=== PATIENT | female | born 1935 | race Hispanic/Latino ===

== ENCOUNTER 2017-11-04 16:34 | Emergency (ER) | payer MEDICARE ==
[~2017-11-04] VITALS: Ht 160 cm; Wt 69.4 kg
[2017-11-04 17:08] LABS: BASOPHILS # (AUTO) 0.1 (0.0-0.1); BASOPHILS % 0.8 % (0.0-1.0); EOSINOPHILS # (AUTO) 0.1 (0.0-0.4); EOSINOPHILS % 1.5 % (0.0-6.0); HEMATOCRIT 35.1 % (34.2-44.1); HEMOGLOBIN 11.9 g/dL (12.0-16.0); LYMPHOCYTES # (AUTO) 1.7 (1.0-3.2); LYMPHOCYTES % 26.9 % (18.0-39.1); MEAN CORPUSCULAR HEMOGLOBIN 30.9 pg (28-32); MEAN CORPUSCULAR HGB CONC 33.9 g/dL (31-35); MEAN CORPUSCULAR VOLUME 91.2 fL (81-99); MONOCYTES # (AUTO) 0.5 (0.2-0.8); MONOCYTES % 7.3 % (4.4-11.3); NEUTROPHILS # (AUTO) 3.9 (2.1-6.9); NEUTROPHILS % 63.3 % (38.7-80.0); PLATELET COUNT 230 x10e3/uL (140-360); RED BLOOD COUNT 3.85 x10e6/uL (3.6-5.1); RED CELL DISTRIBUTION WIDTH 13.5 % (11.7-14.4)
[2017-11-04 17:23] LABS: INR 1.36; PARTIAL THROMBOPLASTIN TIME 28.3 seconds (23.8-35.5); PROTHROMBIN TIME 17.9 seconds (11.9-14.5)
[2017-11-04 17:29] LABS: ALBUMIN 3.9 g/dL (3.5-5.0); ANION GAP 13.9 mmol/L (8-16); CALCIUM 9.4 mg/dL (8.4-10.2); POTASSIUM 3.9 mmol/L (3.5-5.1)
[2017-11-04 17:35] LABS: CREATINE KINASE MB 2.6 ng/mL (0-5.0)
[2017-11-04 17:36] LABS: CLARITY,URINE SL CLOUDY (CLEAR); COLOR,URINE YELLOW (YELLOW); LEUKOCYTE ESTERASE ,URINE TRACE (NEGATIVE); NITRITE,URINE NEGATIVE (NEGATIVE); PROTEIN,URINE DIPSTICK NEGATIVE (NEGATIVE)
[2017-11-04 17:37] LABS: BILIRUBIN,URINE NEGATIVE (NEGATIVE); KETONES,URINE NEGATIVE (NEGATIVE); URINE UROBILINOGEN 0.2 mg/dL (0.2 - 1)
[2017-11-04 17:46] LABS: BACTERIA,URINE RARE /HPF; RBC,URINE 0-5 /HPF (0-5)
--- NOTE | 2017-11-04 18:08 | Diagnostic Imaging Report ---
EXAMINATION: Head CT HISTORY: Dizziness , visual disturbance, hypertension COMPARISON: None. TECHNIQUE: Multidetector axial images were obtained without contrast from the foramen magnum to the vertex . The images were reconstructed using brain and bone algorithms. Thin section brain images were reformatted into coronal and sagittal planes. Intravenous contrast: None. Image quality: Motion/streaking artifact limits the evaluation of the skull base and posterior cranial fossa. Dose modulation, iterative reconstruction, and/or weight based adjustment of the mA/kV was utilized to reduce the radiation dose to as low as reasonably achievable. FINDINGS: Parenchyma: 1. Few scattered and mildly confluent mainly juxtacortical matter hypodensities, most likely nonspecific chronic microvascular ischemic changes. 2. No mass or hemorrhage. No CT evidence of acute territorial vascular insult. Extra-axial spaces:No abnormal density. No extra-axial fluid collections Brain volume: Normal for age. Ventricles: No hydrocephalus or displacement. Arteries: Calcified atherosclerotic changes of the carotid arteries and vertebro-basilar circulation. Dural sinuses: No abnormal density. Extra-axial spaces: No abnormal density. Foramen magnum: No mass, Chiari malformation, or basilar invagination. Sella: Enlarged, partially empty, mostly CSF filled. Paranasal/mastoid sinuses: Mild mucosal inflammatory thickening of the right sphenoid sinus, otherwise clear Skull/Scalp: No lytic or blastic lesions. No fractures. IMPRESSION: 1. No acute intracranial abnormalities, particularly no hemorrhage. 2. Mild chronic microvascular ischemic changes. Signed by: Dr. Felicita Jackson M.D. on 11/04/2017 6:04 PM
--- NOTE | 2017-11-04 18:12 | Diagnostic Imaging Report ---
Examination: Single AP view of the chest. COMPARISON: None. INDICATION: Possible high blood pressure, dizziness IMPRESSION: Exam limited by patient rotation. 1. Lines and Tubes: None 2. Lungs are grossly clear. No consolidation or effusion. 3. Cardiomediastinal silhouette is normal. Pulmonary vasculature is normal. Mildly tortuous aorta 4. No acute bony abnormalities. Signed by: Dr. Filiberto Schmitt M.D. on 11/04/2017 6:08 PM
[2017-11-04] MEDS ORDERED: MECLIZINE HCL 12.5 MG TAB PO SCH (21:00)
== END 2017-11-04 19:37 | disposition home or self-care (01) ==
LOC: ER 16:34
DX: R42 Dizziness and giddiness (principal); R11.0 Nausea; N30.91 Cystitis, unspecified with hematuria
CPT/HCPCS: 36415; 70450; 71045; 80053; 81001; 82550; 82553; 84484; 85025; 85610; 85730; 93005; 99284

== ENCOUNTER 2018-05-06 16:27 | Emergency (ER) | payer MEDICARE ==
[~2018-05-06] VITALS: Ht 160 cm; Wt 69.4 kg
--- OUTSIDE RECORDS SUMMARY | 2018-05-06 16:30 | XMS REPORT ---
Author [facility] Address Unknown Phone Unavailable Care Team Providers Care Energy Control Officer Name Role Phone Ifrah FARMER Unavailable Unavailable Problems This patient has no known problems. Allergies, Adverse Reactions, Alerts This patient has no known allergies or adverse reactions. Medications This patient has no known medications. Results Test Description Test Time Test Comments Text Results Atomic Results Result Comments CHEST SINGLE (PORTABLE) 2017-11-04 18:08:00 [place] [address] Patient Name: JOSE MASON MR #: [id number] : 1935 Age/Sex: 81/F Req #: [id number] Adm Physician: Ordered by: TRIXIE HUSAIN CLEAT THROWER Report #: [id number] Location: ER Room/Bed: Procedure: [id number] DX/CHEST SINGLE (PORTABLE) Exam Date: 11/04/17 Exam Time: 1750 REPORT STATUS: Signed Examination: Single AP view of the chest. COMPARISON: None. INDICATION: Possible high blood pressure, dizziness IMPRESSION: Exam limited by patient rotation. 1. Lines and Tubes: None 2. Lungs are grossly clear. No consolidation or effusion. 3. Cardiomediastinal silhouette is normal. Pulmonary vasculature is normal. Mildly tortuous aorta 4. No acute bony abnormalities. Signed by: Dr. Mushtaq Schmitt M.D. on 11/04/2017 6:08 PM Dictated By: MUSHTAQ SCHMITT MD 07 Transcribed By: NANCY on 11/04/171807 COPY TO: TRIXIE HUSAIN NP CT BRAIN WO 2017-11-04 17:55:00 [place] [address] Patient Name: JOSE MASON MR #: [id number] : 1935 Age/Sex: 81/F Req #: [id number] Adm Physician: Ordered by: TRIXIE HUSAIN NP Report #: [id number] Location: ER Room/Bed: Procedure: [id number] CT/CT BRAIN WO Exam Date: 11/04/17 Exam Time: 1745 REPORT STATUS: Signed EXAMINATION: Head CT HISTORY: Dizziness , visual disturbance, hypertension COMPARISON: None. TECHNIQUE: Multidetector axial images were obtained without contrast from the foramen magnum to the vertex . The images were reconstructed using brain and bone algorithms. Thin section brain images were reformatted into coronal and sagittal planes. Intravenous contrast: None. Image quality: Motion/streaking artifact limits the evaluation of the skull base and posterior cranial fossa. Dose modulation, iterative reconstruction, and/or weight based adjustment of the mA/kV was utilized to reduce the radiation dose to as low as reasonably achievable. FINDINGS: Parenchyma: 1. Few scattered and mildly confluent mainly juxtacortical matter hypodensities, most likely nonspecific chronic microvascular ischemic changes. 2. No mass or hemorrhage. No CT evidence of acute territorial vascular insult. Extra-axial spaces:No abnormal density. No extra-axial fluid collections Brain volume: Normal for age. Ventricles: No hydrocephalus or displacement. Arteries: Calcified atherosclerotic changes of the carotid arteries and vertebro-basilar circulation. Dural sinuses: No abnormal density. Extra-axial spaces: No abnormal density. Foramen magnum: No mass, Chiari malformation, or basilar invagination. Sella: Enlarged, partially empty, mostly CSF filled. Paranasal/mastoid sinuses: Mild mucosal inflammatory thickening of the right sphenoid sinus, otherwise clear Skull/Scalp: No lytic or blastic lesions. No fractures. IMPRESSION: 1. No acute intracranial abnormalities, particularly no hemorrhage. 2. Mild chronic microvascular ischemic changes. Signed by: Dr. Elizabet Jackson M.D. on 11/04/2017 6:04 PM Dictated By: ELIZABET JACKSON MD 03 Transcribed By: NANCY on 11/04/171803 COPY TO: TRIXIE HUSAIN NP
[2018-05-06 17:44] LABS: BASOPHILS % 0.3 % (0.0-1.0); EOSINOPHILS # (AUTO) 0.1 (0.0-0.4); EOSINOPHILS % 0.7 % (0.0-6.0); HEMATOCRIT 37.2 % (34.2-44.1); HEMOGLOBIN 12.2 g/dL (12.0-16.0); LYMPHOCYTES # (AUTO) 1.3 (1.0-3.2); LYMPHOCYTES % 13.2 % (18.0-39.1); MEAN CORPUSCULAR HEMOGLOBIN 30.7 pg (28-32); MEAN CORPUSCULAR HGB CONC 32.8 g/dL (31-35); MEAN CORPUSCULAR VOLUME 93.5 fL (81-99); MONOCYTES # (AUTO) 0.6 (0.2-0.8); MONOCYTES % 6.3 % (4.4-11.3); NEUTROPHILS # (AUTO) 7.8 (2.1-6.9); NEUTROPHILS % 79.2 % (38.7-80.0); PLATELET COUNT 232 x10e3/uL (140-360); RED BLOOD COUNT 3.98 x10e6/uL (3.6-5.1); RED CELL DISTRIBUTION WIDTH 13.3 % (11.7-14.4)
[2018-05-06 17:54] LABS: INR 1.58; PROTHROMBIN TIME 19.5 seconds (11.9-14.5)
[2018-05-06 17:55] LABS: PARTIAL THROMBOPLASTIN TIME 33.5 seconds (23.8-35.5)
[2018-05-06 18:04] LABS: ALBUMIN 3.8 g/dL (3.5-5.0); ALBUMIN/GLOBULIN RATIO 0.9 (0.8-2.0); ANION GAP 12.3 mmol/L (8-16); CALCIUM 9.1 mg/dL (8.4-10.2); CREATININE, SERUM 0.98 mg/dL (0.57-1.11); POTASSIUM 3.3 mmol/L (3.5-5.1)
--- NOTE | 2018-05-06 18:29 | Diagnostic Imaging Report ---
Wrist Complete right CPT Code: 27598 Indication: Fall, hand swelling Technique: Three views right wrist obtained. Comparison: None Findings: The bones are diffusely demineralized. Nondisplaced fracture of the distal radius with the fracture plane extending to the articular surface. No impaction. Distal ulna is intact. The carpal bones are intact and normally aligned. Mild degenerative changes of the carpometacarpal joint. No fracture or dislocation of the visualized digits. No radiopaque foreign bodies in the soft tissues. IMPRESSION: Nondisplaced fracture of the distal radius. Signed by: Dr. Mayra Stern MD on 05/06/2018 6:26 PM
--- NOTE | 2018-05-06 18:30 | Diagnostic Imaging Report ---
History: Fall, on coumadin Comparison studies:10/15/2017 Technique: Axial images were obtained from the brain and cervical spine. Coronal and sagittal images reconstructed from the axial data. Intravenous contrast: None Dose modulation, iterative reconstruction, and/or weight based adjustment of the mA/kV was utilized to reduce the radiation dose to as low as reasonably achievable. Findings: Head CT: Scalp/skull: No abnormalities. Extra-axial spaces: No masses. No fluid collections. Brain sulci: Mildly prominent. Ventricles: Mild compensatory dilatation. No hydrocephalus. Parenchyma: Describe hypodensities in the supratentorial white matter are small vessel ischemic changes. No masses, hemorrhage, acute or chronic cortical vascular insults. Sellar/suprasellar region: No abnormalities. Craniocervical junction: Patent foramen magnum. No Chiari one malformation. Incidental findings: Atherosclerotic calcifications in the carotid siphons, vertebrals and basilar arteries . Cervical spine CT: Fractures: None. Soft tissues: No gross abnormalities. Atlantoaxial articulation: Intact. Alignment: Normal lordosis. No scoliosis. Cervicomedullary junction: No abnormalities. Patent foramen magnum. Vertebrae: No infection or neoplasm. Degenerative changes: Uncinate process and facet hypertrophy results in severe right foraminal narrowing at C4-6 and severe bilateral at C6-7. Incidental findings: None. Impression: Head CT: 1. No acute abnormality. Cervical spine CT: 1. No acute abnormalities. 2. Cannot exclude ligament, spinal cord and or vascular abnormalities on the basis of this examination. Signed by: DR Asael Carter M.D. on 05/06/2018 6:26 PM
--- NOTE | 2018-05-06 18:31 | Diagnostic Imaging Report ---
Hand Complete CPT code: 83360 Indication:Fall Technique: Three views of the right hand obtained Comparison: Wrist x-rays obtained at the same time Findings: There is a nondisplaced fracture through the distal radius involving the articular surface. No impaction. Distal ulna is intact. Carpal bones are intact and normally aligned with mild degenerative changes of the first CMC joint. The digits are intact. No dislocation. Degenerative changes of the proximal and distal IP joints and the IP joint of the first digit. There is diffuse soft tissue swelling of the hand. No radiopaque foreign bodies in the soft tissues. IMPRESSION: Nondisplaced distal radial fracture. No fracture or dislocation of the digits or carpal bones. Degenerative changes as described above. Signed by: Dr. Mayra Stern MD on 05/06/2018 6:28 PM
--- NOTE | 2018-05-06 18:34 | Diagnostic Imaging Report ---
EXAMINATION: CHEST SINGLE (PORTABLE) COMPARISON: Chest x-ray 11/04/2017 INDICATION: ^fall ^[id number] ^1803 DISCUSSION: Frontal view of the chest obtained at 1754 hours. HEART AND MEDIASTINUM: The heart is top normal in size. The aorta is ectatic LINES: None. LUNGS: The lungs are diffusely hyperinflated. Mild reticulation of the lung bases is suggestive of subsegmental atelectasis. No consolidation. No interstitial thickening. PLEURA: No pleural effusion or pneumothorax. BONES AND SOFT TISSUES: The bones are diffusely demineralized. No fracture or dislocation. There are degenerative changes throughout the thoracic spine. The soft tissues are normal. IMPRESSION: No acute traumatic pathology by x-ray. COPD and subsegmental atelectasis. Signed by: Dr. Mayra Stern MD on 05/06/2018 6:31 PM
--- NOTE | 2018-05-06 18:35 | Diagnostic Imaging Report ---
Hip complete Indication: ^fall Technique: AP and frogleg views of right hip obtained. Comparison: None Findings: Right hip remains properly located. The cortex appears intact throughout. Trochanters appear intact. Minimal spurring evident from the superior acetabulum. Adjacent pubic rami appear intact. There are degenerative changes of the pubic symphysis. Lower lumbar spine demonstrates degenerative changes. The left hip is intact and normally positioned. There is a bone island in the right issue tuberosity and a bone island in the left femoral neck. IMPRESSION: Right hip properly located. No convincing evidence for fracture. Signed by: Dr. Mayra Stern MD on 05/06/2018 6:32 PM
[2018-05-06 19:31] VITALS: BP 130/66
== END 2018-05-06 19:44 | disposition home or self-care (01) ==
LOC: ER 16:27
DX: S52.591A Other fractures of lower end of right radius, initial encounter for closed fracture (principal); W01.0XXA Fall on same level from slipping, tripping and stumbling without subsequent striking against object, initial encounter; Y92.009 Unspecified place in unspecified non-institutional (private) residence as the place of occurrence of the external cause; S79.911A Unspecified injury of right hip, initial encounter; I10 Essential (primary) hypertension; E78.5 Hyperlipidemia, unspecified; Z86.73 Personal history of transient ischemic attack (TIA), and cerebral infarction without residual deficits
CPT/HCPCS: 36415; 70450; 71045; 72125; 80053; 85025; 85610; 85730; 99284

== ENCOUNTER 2018-07-22 10:40 | Inpatient (IN) | payer MEDICARE ==
[~2018-07-22] VITALS: Ht 160 cm; Wt 69.4 kg
[2018-07-22 11:49] LABS: BASOPHILS % 0.3 % (0.0-1.0); EOSINOPHILS # (AUTO) 0.1 (0.0-0.4); EOSINOPHILS % 0.8 % (0.0-6.0); HEMATOCRIT 34.6 % (34.2-44.1); HEMOGLOBIN 11.8 g/dL (12.0-16.0); LYMPHOCYTES # (AUTO) 1.3 (1.0-3.2); LYMPHOCYTES % 10.5 % (18.0-39.1); MEAN CORPUSCULAR HEMOGLOBIN 30.7 pg (28-32); MEAN CORPUSCULAR HGB CONC 34.1 g/dL (31-35); MEAN CORPUSCULAR VOLUME 90.1 fL (81-99); MONOCYTES # (AUTO) 0.8 (0.2-0.8); MONOCYTES % 6.6 % (4.4-11.3); NEUTROPHILS % 81.3 % (38.7-80.0); PLATELET COUNT 233 x10e3/uL (140-360); RED BLOOD COUNT 3.84 x10e6/uL (3.6-5.1); RED CELL DISTRIBUTION WIDTH 13.2 % (11.7-14.4)
[2018-07-22 11:58] LABS: INR 1.82; PROTHROMBIN TIME 21.7 seconds (11.9-14.5)
[2018-07-22 12:02] LABS: ANION GAP 12.6 mmol/L (8-16); CALCIUM 8.8 mg/dL (8.4-10.2); CREATININE, SERUM 0.99 mg/dL (0.57-1.11); POTASSIUM 3.6 mmol/L (3.5-5.1)
--- NOTE | 2018-07-22 12:15 | NUR ---
bladder scan done; pvr-30ml. dr. hall/james notified
[2018-07-22 12:26] LABS: BILIRUBIN,URINE NEGATIVE (NEGATIVE); CLARITY,URINE TURBID (CLEAR); COLOR,URINE RED (YELLOW); KETONES,URINE NEGATIVE (NEGATIVE); LEUKOCYTE ESTERASE ,URINE TRACE (NEGATIVE); NITRITE,URINE NEGATIVE (NEGATIVE); URINE UROBILINOGEN 0.2 mg/dL (0.2 - 1)
[2018-07-22 12:33] LABS: PROTEIN,URINE DIPSTICK 2+ (NEGATIVE)
[2018-07-22 12:40] LABS: RBC,URINE >50 /HPF (0-5)
[2018-07-22] MEDS ORDERED: IOPAMIDOL 370 MG/ML 200 ML INFUS..BTL INJ ONE (14:04)
[2018-07-22] MEDS ORDERED: SODIUM CHLORIDE 0.9% 50ML 50 ML ONE (14:04)
--- NOTE | 2018-07-22 16:07 | Diagnostic Imaging Report ---
EXAM: CT Abdomen and Pelvis with contrast INDICATION: Hematuria COMPARISON: None. TECHNIQUE: Abdomen and pelvis were scanned utilizing a multidetector helical scanner from the lung base to the pubic symphysis after administration of IV contrast. Coronal and sagittal reformations were obtained. Routine protocol was performed. Scan was performed when during portal venous phase. IV CONTRAST: 100 cc of Isovue 370 ORAL CONTRAST: Water COMPLICATIONS: None RADIATION DOSE: Total DLP: 323.2 mGy*cm Dose modulation, iterative reconstruction, and/or weight based adjustment of the mA/kV was utilized to reduce the radiation dose to as low as reasonably achievable. FINDINGS: LINES and TUBES: None. LOWER THORAX: Patchy dependent opacities, likely atelectasis. Mild cardiomegaly. Coronary atherosclerosis. HEPATOBILIARY: There is a 8 mm hyperdense lesion at the hepatic dome on series 2, image 10; and two left hepatic lesions measuring 7 mm and 9 mm on image 19. Diffuse mild hepatic steatosis. No biliary ductal dilation. A 7 mm hypodensity in the right hepatic lobe is too small to characterize, but likely represents a cyst. GALLBLADDER: No radio-opaque stones or sludge. No wall thickening. SPLEEN: No splenomegaly. PANCREAS: There is a 1.6 cm heterogeneously hyperdense lesion at the pancreatic tail. No focal masses or ductal dilatation. ADRENALS: No adrenal nodules KIDNEYS/URETERS: Kidneys enhance symmetrically. Bilateral pelviectasis without hydronephrosis. No evidence of solid mass or stone. Indeterminant 7 mm hypodense lesion in the right mid pole kidney (series 2, image 39; 45 HU). A left lower pole renal hypodensity is too small to characterize, but likely represents a cyst. GI TRACT: No evidence of wall thickening or distension. Status post appendectomy. There is sigmoid colonic diverticulosis without CT evidence of diverticulitis. PELVIC ORGANS/BLADDER: Status post hysterectomy. LYMPH NODES: No lymphadenopathy. VESSELS: There are scattered atherosclerotic calcifications in the aorta and branch vessels. PERITONEUM / RETROPERITONEUM: No free air or fluid. BONES AND SOFT TISSUES: Mild degenerative changes of visualized spine. Nonspecific sclerotic focus in the posterior aspect of the right inferior pubic ramus. CONCLUSION: Pancreatic tail hyperdense lesion with multiple hyperdense liver lesions. Differential includes neuroendocrine tumor. Recommend follow-up MRI with focus on the liver and pancreas for further evaluation. Indeterminate 7 mm hypodense lesion in the right mid pole kidney. Suggest follow-up renal ultrasound for further evaluation. Hepatic steatosis. Signed by: Dr. Charmaine Pablo MD on 07/22/2018 4:08 PM
[2018-07-22] MEDS ORDERED: MORPHINE SULFATE 2 MG/ML SYR 1ML IV PRN (17:00)
[2018-07-22] MEDS: MORPHINE SULFATE INJ 4 MG/ML INJ 1ML IV PRN ×2 (17:51→22:10)
[2018-07-22] MEDS: SODIUM CHLORIDE 0.9% 1000ML 1,000 ML IV SCH (17:52)
[2018-07-22] MEDS: ONDANSETRON HCL INJ 2MG/ML 2ML 2 MG/ML VIAL IV PRN ×2 (17:52→22:10)
[2018-07-22 19:45] VITALS: BP 131/68
--- NOTE | 2018-07-22 19:45 | NUR ---
PATIENT RECEIVED FROM EMERGENCY DEPARTMENT PER STRETCHER AT 1932. SHE'S ALERT AND ORIENTED X3, NO RESPIRATORY DISTRESS OBSERVED. ABDOMEN TENDER TO TOUCH AND SHE C/O ABDOMINAL PAIN. PAIN MEDICATION NOT DUE YET, WILL ADMINISTER THE MEDICATION ONCE IT'S TIME. SKIN INTEGRITY INTACT, IV INTACT TO THE LEFT AC. ORIENTED TO SURROUNDINGS, CALL LIGHT WITHIN EASY REACH, BED ALARM ON.
[2018-07-22 21:08] VITALS: BP 131/68
--- NOTE | 2018-07-22 22:11 | NUR ---
PATIENT C/O PAIN TO THE ABDOMEN WITH PAIN SCORE #9, MEDICATED WITH MORPHINE AND ZOFRAN ORDERED. ASSISTED WITH ADLS, CALL LIGHT WITHIN EASY REACH, SHE'S INSTRUCTED TO CALL FOR ASSISTANCE NEEDED.
[2018-07-23] VITALS (7 sets, daily range): BP systolic 97–132; BP diastolic 51–72
[2018-07-23] MEDS ORDERED: COUMADIN2 MG PO (01:52)
[2018-07-23] MEDS ORDERED: OMEPRAZOLE40 MG PO (01:52)
[2018-07-23] MEDS ORDERED: ALENDRONATE SOD70 MG PO (01:52)
[2018-07-23] MEDS ORDERED: NORVASC5 MG PO (01:52)
[2018-07-23] MEDS ORDERED: LOVASTATIN40 MG PO (01:52)
[2018-07-23] MEDS ORDERED: COUMADIN1 MG PO (01:52)
[2018-07-23] MEDS ORDERED: LISINOPRIL2.5 MG PO (01:52)
[2018-07-23] MEDS ORDERED: SLOW-MAG64 MG PO (01:52)
[2018-07-23] MEDS ORDERED: HYDROCHLOROTH12.5 MG PO (01:52)
[2018-07-23] MEDS ORDERED: POTASSIUM CHLO10 ME1 PO (01:52)
[2018-07-23] MEDS: MORPHINE SULFATE INJ 4 MG/ML INJ 1ML IV PRN (03:21)
[2018-07-23] MEDS: SODIUM CHLORIDE 0.9% 1000ML 1,000 ML IV SCH ×2 (03:22→14:08)
[2018-07-23] MEDS: ONDANSETRON HCL INJ 2MG/ML 2ML 2 MG/ML VIAL IV PRN (03:22)
--- NOTE | 2018-07-23 03:22 | NUR ---
PATIENT C/O PAIN TO THE RIGHT SIDE OF THE ABDOMEN WITH PAIN SCORE #7, MEDICATED WITH MORPHINE AND ZOFRAN ORDERED. ASSISTED WITH ADLS, CALL LIGHT WITHIN EASY REACH, BED ALARM ON.
--- NOTE | 2018-07-23 04:47 | NUR ---
PATIENT RESTING COMFORTABLY IN BED, NO RESPIRATORY DISTRESS OBSERVED. SHE STATED THAT HER URINE IS STILL BLOODY, SHE'S INSTRUCTED TO NOTIFY THE NURSE WHEN SHE VOIDS SO THAT THE URINE CAN BE ASSESS. CALL LIGHT WITHIN EASY REACH, BED ALARM ON.
[2018-07-23 06:07] LABS: BASOPHILS % 0.3 % (0.0-1.0); EOSINOPHILS # (AUTO) 0.1 (0.0-0.4); EOSINOPHILS % 1.1 % (0.0-6.0); HEMATOCRIT 32.9 % (34.2-44.1); HEMOGLOBIN 11.1 g/dL (12.0-16.0); LYMPHOCYTES # (AUTO) 1.5 (1.0-3.2); MEAN CORPUSCULAR HEMOGLOBIN 30.3 pg (28-32); MEAN CORPUSCULAR HGB CONC 33.7 g/dL (31-35); MEAN CORPUSCULAR VOLUME 89.9 fL (81-99); MONOCYTES # (AUTO) 0.8 (0.2-0.8); MONOCYTES % 7.6 % (4.4-11.3); NEUTROPHILS # (AUTO) 7.8 (2.1-6.9); NEUTROPHILS % 75.7 % (38.7-80.0); PLATELET COUNT 214 x10e3/uL (140-360); RED BLOOD COUNT 3.66 x10e6/uL (3.6-5.1); RED CELL DISTRIBUTION WIDTH 13.4 % (11.7-14.4)
[2018-07-23 06:24] LABS: ANION GAP 9.6 mmol/L (8-16); CALCIUM 8.5 mg/dL (8.4-10.2); CREATININE, SERUM 0.95 mg/dL (0.57-1.11); POTASSIUM 3.6 mmol/L (3.5-5.1)
--- NOTE | 2018-07-23 07:20 | NUR ---
PATIENT IS AWAKE, ALERT AND IN STABLE CONDITION WITH NO S/S OF RESPIRATORY DISTRESS. PATIENT C/O RLQ PAIN 5/10 BUT STATED SHE RECENTLY RECEIVED PAIN MEDICATION. BED ALARM ON. IV FLUIDS INFUSING. PATIENT STATED TO BLOOD IN URINE- HAT PLACED ON TOILET FOR RN TO VIEW. CALL LIGHT IS WITHIN REACH, PATIENT INSTRUCTED TO CALL FOR ASSISTANCE NEEDED.
--- NOTE | 2018-07-23 11:40 | NUR ---
URINE COLLECTED IN HAT- LIGHT RAFAL COLOR NOTED WITH SLIGHT PINK TINGE NOTED. PATIENT STATED "ITS CLEAR AND THERE WAS A LOT OF BLOOD"
[2018-07-23] MEDS ORDERED: HYDROCODONE/APAP 5MG-325MG TAB PO PRN (15:15)
[2018-07-23] MEDS ORDERED: TRAZODONE HCL 50 MG TAB PO PRN (15:15)
[2018-07-23] MEDS ORDERED: ACETAMINOPHEN 325 MG TAB PO PRN (15:15)
--- NOTE | 2018-07-23 16:09 | NUR ---
Nutrition Screen Note RD Recommendation for Physician: -Continue current diet as ordered Plan of Care: RD following, monitoring for tolerance and adequacy Nutrition reason for involvement: Diagnosis Primary Diagnose(s): Pancreatic/ liver cancer PMH: Hypertension, CVA, TIA, HLD Ht: 63in Wt: 153lb BMI: 27.1kg/m2 IBW: 115lb RD Assessment: (07/23) Chart reviewed. Labs and meds reviewed. 82yo F, who was admitted for pancreatic/ liver cancer. Visited pt in the room. Pt reported good appetite with 75-100% recorded meal intake. No complains of nausea or vomiting. Pt denied any chewing or swallowing difficulty. 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 Reported UBW of 147lbs. Current diet is appropriate and adequate. Will continue to monitor and follow. Current Diet: cardiac diet Malnutrition Evaluation (07/23/2018) The patient does not meet criteria for a specified degree of malnutrition at this time. Will re-evaluate at follow-up as appropriate. Diet Education Needs Assessment: Diet education not indicated. Nutrition Care Level: low Signed: Giovana Galarza, MS, RD, LD
[2018-07-23] MEDS: MIDODRINE 2.5 MG TAB PO SCH (16:29)
--- NOTE | 2018-07-23 19:19 | NUR ---
PATIENT IS RESTING IN BED AND REMAINS IN STABLE CONDITION WITH NO S/S OF RESPIRATORY DISTRESS. CALL LIGHT IS WITHIN REACH, PATIENT INSTRUCTED TO CALL FOR ASSISTANCE NEEDED. BEDSIDE SHIFT REPORT GIVEN TO ONCOMING NURSE.
--- NOTE | 2018-07-23 20:03 | NUR ---
PATIENT C/O PAIN TO THE ABDOMEN WITH PAIN SCORE #7, MEDICATED WITH NORCO 1TAB ORDERED. CALL LIGHT WITHIN EASY REACH, SHE'S INSTRUCTED TO CALL FOR ASSISTANCE NEEDED.
[2018-07-23] MEDS ORDERED: SIMVASTATIN 20 MG TAB PO SCH (21:00)
--- NOTE | 2018-07-23 23:49 | NUR ---
PATIENT RESTING COMFORTABLY IN BED, NO RESPIRATORY DISTRESS OBSERVED, SHE REFUSED PAIN MEDICATION WHEN OFFER. BED ALARM ON, CALL LIGHT WITHIN EASY REACH.
[2018-07-24] VITALS (7 sets, daily range): BP systolic 102–130; BP diastolic 53–60
--- NOTE | 2018-07-24 01:00 | History and Physical ---
CHIEF COMPLAINT: Hematuria, bloody urine, chronic abdominal pain. HISTORY OF PRESENT ILLNESS: This is an 82-year-old female, very pleasant patient with known history of hypertension, also history of CVA on anticoagulation with warfarin given by her neurologist, who presents to the hospital with complaints of hematuria that began since yesterday. The patient reports that she noticed some gross bleeding per urine. She has stopped taking warfarin on yesterday. She did not tell me exactly when the last time she checked her INR, but the INR here was 1.82. She denies any dysuria or any urinary frequency. Also endorses some right-sided abdominal pain. This has been on and off for the last 3 years. She reports of more flank pain and right-sided abdominal pain that has been pretty consistent. Has not been following up by any physician as an outpatient. She did not see a GI specialist in relation to this. She denies any weight loss. She denies any hematemesis or hemoptysis. CT imaging studies here were concerning for underlying pancreatic lesions as well as liver lesions concerning for underlying malignancy. The patient was seen and evaluated at bedside on the medical floor. Currently, she is doing well with no other issues at this time. REVIEW OF SYSTEMS: Pertinent positives: Right-sided abdominal pain that radiated to her lower back for more than 3 years now, hematuria. Pertinent negatives: Denies any chest pain, palpitation, nausea, vomiting, dysuria, frequency, urgency, lightheadedness, dizziness, headaches, shortness of breath, cough, congestion, fever, or any other complaints. The rest of the 14-point review of systems are reviewed with the patient and are negative. ALLERGIES: PENICILLIN. HOME MEDICATIONS: 1. Alendronate 70 mg every weekly. 2. Norvasc 5 mg daily. 3. Lisinopril 5 mg daily. 4. Magnesium chloride 64 mg daily. 5. Potassium supplements. 6. Warfarin 1 mg as well as 2 mg on a certain schedule per week. 7. Hydrochlorothiazide 12.5 mg daily. 8. Lovastatin 40 mg daily. 9. Omeprazole 40 mg daily. PAST MEDICAL HISTORY: Hyperlipidemia, history of CVA on anticoagulation, hypertension, and acid reflux. PAST SURGICAL HISTORY: Reports none. FAMILY HISTORY: Hypertension, diabetes. SOCIAL HISTORY: No drugs. No alcohol. Does not smoke. Good social support. PHYSICAL EXAMINATION: VITAL SIGNS: Temperature 99.2, pulse 78, respiratory rate 17, blood pressure last recorded 99/51, but prior to that, she has had no blood pressures. O2 sats 94% on room air. GENERAL: Not in acute distress. Alert and oriented x3. Cooperative on examination. HEENT: Head is normocephalic and atraumatic. Eyes; pupils are equal, round, and reactive to light bilaterally. Extraocular movements are intact bilateral. NECK: Supple. Good range of motion throughout. No evidence of erythema or exudates in the posterior pharynx. Has poor dentition. PULMONARY: Clear to auscultation bilaterally. No wheezing, rales, or rhonchi. No crackles appreciated. CARDIOVASCULAR: Positive S1, S2. No murmurs, rubs, or gallops appreciated. ABDOMEN: Soft, nontender, and nondistended to palpation. Bowel sounds present. MUSCULOSKELETAL: Strength is 5/5 throughout. No evidence of any muscle deficits on examination. No weakness appreciated. NEUROLOGIC: Cranial nerves II through XII grossly intact. No evidence of any neurological deficits on exam. SKIN: Intact. Warm to touch. Good cap refill. PSYCHIATRIC: Normal affect and mood. EXTREMITIES: No edema. Good range of motion throughout. LABORATORY DATA: Lab findings show white count is 10.2, hemoglobin 11, hematocrit is 32.9, and platelets of 214. Coagulation; PT 21, INR 1.82, PTT 32. Chemistry; sodium 137, potassium 3.6, chloride 104, bicarb 27, anion gap 9.6, BUN is 11, creatinine is 0.95, glucose 92, calcium 8.5. Urinalysis; UA is consistent with hematuria with greater than 50 rbc's. IMAGING STUDIES: CT abdomen and pelvis showed a pancreatic tail hyperdense lesion with multiple hyperdense liver lesions. Differential diagnosis includes neuroendocrine tumor. May need MRI of the abdomen. It showed it has an indeterminate 7 mm hypodense lesion in the right mid pole. IMPRESSION: 1. Hematuria, on anticoagulation. 2. Pancreatic lesions and liver lesions, concerning for underlying malignancy. 3. Hypertension, but currently hypotensive. 4. Hyperlipidemia. PLAN: At this time, Urology has been consulted to evaluate this hematuria. Her anticoagulation has been held. Also, she does not have any current hematuria, but we will continue to monitor this closely. She will likely need a cystoscopy. In relation to her pancreatic and liver lesions, I will go ahead and consult Oncology, Dr. Neely to come and evaluate her. I will also hold the warfarin at this time as she will likely need a CT-guided biopsy to further evaluate. She is currently afebrile and does not have any fever. White count minimally elevated, but improved to 10.2. There is no source of infection at this time and so at this time, she does not warrant any kind of antibiotics. Otherwise, we will follow with the urologist and oncologist recommendations. I discussed overall plan of care with the patient at bedside including her grandson, who was present throughout the entire conversation. They verbalized understanding and agrees with plan of care. MD ASHLEY Doe/MODValarie /[id number]
[2018-07-24] MEDS: SODIUM CHLORIDE 0.9% 1000ML 1,000 ML IV SCH ×2 (02:19→16:33)
--- NOTE | 2018-07-24 03:10 | NUR ---
PATIENT ASSISTED TO THE RESTROOM TO VOID, HER URINE IS CLEAR YELLOW WITHOUT BLOOD. SHE'S NOW BACK IN BED WITHOUT RESPIRATORY DISTRESS. SHE C/O PAIN TO THE ABDOMEN BUT REFUSED BOTH THE MORPHINE AND NORCO FOR PAIN AT THIS TIME. SHE'S INSTRUCTED TO NOTIFY THE PRIMARY NURSE FOR PAIN MANAGEMENT NEEDED.
[2018-07-24 07:12] LABS: BASOPHILS % 0.3 % (0.0-1.0); EOSINOPHILS # (AUTO) 0.1 (0.0-0.4); EOSINOPHILS % 1.2 % (0.0-6.0); HEMATOCRIT 31.5 % (34.2-44.1); HEMOGLOBIN 10.4 g/dL (12.0-16.0); LYMPHOCYTES # (AUTO) 1.2 (1.0-3.2); LYMPHOCYTES % 11.7 % (18.0-39.1); MEAN CORPUSCULAR HEMOGLOBIN 30.2 pg (28-32); MEAN CORPUSCULAR VOLUME 91.6 fL (81-99); MONOCYTES # (AUTO) 0.8 (0.2-0.8); MONOCYTES % 7.8 % (4.4-11.3); NEUTROPHILS % 78.5 % (38.7-80.0); PLATELET COUNT 180 x10e3/uL (140-360); RED BLOOD COUNT 3.44 x10e6/uL (3.6-5.1); RED CELL DISTRIBUTION WIDTH 13.7 % (11.7-14.4)
--- NOTE | 2018-07-24 07:15 | NUR ---
PATIENT IS AMBULATING IN HER ROOM- PATIENT IS IN STABLE CONDITION WITH NO S/S OF RESPIRATORY DISTRESS. IV FLUIDS INFUSING. CALL LIGHT IS AVAILABLE FOR THE PATIENT ON HER BED.
[2018-07-24 07:33] LABS: ANION GAP 10.6 mmol/L (8-16); BLOOD UREA NITROGEN 11 mg/dL (7-26); BUN/CREATININE RATIO 14 (6-25); CARBON DIOXIDE 25 mmol/L (22-29); CHLORIDE 109 mmol/L (98-107); CREATININE, SERUM 0.78 mg/dL (0.57-1.11); EST GLOMERULAR FILTRATION RATE > 60 ML/MIN (60-); GLUCOSE 96 mg/dL (74-118); POTASSIUM 3.6 mmol/L (3.5-5.1); SODIUM 141 mmol/L (136-145)
[2018-07-24] MEDS: PANTOPRAZOLE SOD 40 MG TABEC PO SCH (08:17)
[2018-07-24] MEDS: MIDODRINE 2.5 MG TAB PO SCH ×3 (08:18→16:25)
[2018-07-24 10:40] LABS: ALBUMIN 2.7 g/dL (3.5-5.0); BILIRUBIN,DIRECT 0.4 mg/dL (0.0-0.5)
--- NOTE | 2018-07-24 12:30 | NUR ---
Discussed pt status and plan of care with Dr. Ruby. He ordered her to be inpatient.
--- NOTE | 2018-07-24 12:47 | NUR ---
DR. SANTOS ON THE UNIT- ASKED RN TO CHECK POST VOID RESIDUAL ON PATIENT. RESULT (OBTAINED AT 1240) 70ML NOTED ON BLADDER SCAN. BLADDER SCAN RESULTS/INFO LEFT IN THE CHART FOR DR. SANTOS.
[2018-07-24] MEDS ORDERED: SIMETHICONE 80 MG CHEW PO PRN (17:15)
[2018-07-24] MEDS ORDERED: POLYETHYLENE GLYCOL 3350 17 GM PACK PO PRN (17:15)
[2018-07-24] MEDS ORDERED: SODIUM CHLORIDE 0.9% 50ML 50 ML ONE (17:20)
[2018-07-24] MEDS ORDERED: IOPAMIDOL 370 MG/ML 200 ML INFUS..BTL INJ ONE (17:20)
--- NOTE | 2018-07-24 18:19 | Progress Note ---
DATE: 07/24/2018 Medicine Progress Note SUBJECTIVE: The patient reports having just some right shoulder pain. Denies any chest pain, palpitation, nausea, or vomiting. No other complaints at this time. She did speak with Oncology yesterday and further imaging studies have been ordered. I spoke with the patient at bedside with the nurse present, in which I told the family to please step out as she does not want to tell her family her overall diagnosis. PHYSICAL EXAMINATION: VITAL SIGNS: Temperature 98.9, pulse 87, respiratory rate is 18, blood pressure 174/58, pulse ox 94% on room air. GENERAL: Not in acute distress. Alert and oriented x3. Cooperative on examination. HEENT: Head is normocephalic, atraumatic. Eyes; pupils are equal, round, and reactive to light bilaterally. Extraocular movements are intact bilaterally. Throat; no evidence of erythema or exudates in the posterior pharynx. Has poor dentition. NECK: Supple. Good range of motion throughout. PULMONARY: Clear to auscultation bilaterally. No wheezing, no rales, no rhonchi, no crackles appreciated. CARDIOVASCULAR: Positive S1, S2. No murmurs, rubs, or gallops appreciated. ABDOMEN: Soft, nondistended, nontender to palpation. Bowel sounds present. MUSCULOSKELETAL: Strength is 5/5 throughout. No evidence of any muscle deficits on examination. No weakness appreciated. NEUROLOGIC: Cranial nerves II through XII grossly intact. No evidence of any neurological deficits on exam. SKIN: Intact. Warm to touch. Good cap refill. PSYCHIATRIC: Normal affect and mood. EXTREMITIES: No edema. Good range of motion throughout. LAB FINDINGS: White count 10.1, hemoglobin 10.4, hematocrit 32, and platelets of 180. Coagulation; PT 21, INR 1.82, PTT 32. Chemistry reviewed and are normal. LFTs were normal. Albumin 2.7. Urinalysis; urine cultures are pending. IMAGING STUDIES: Nothing new today. IMPRESSION: 1. Hematuria, on anticoagulation, now improving. 2. Pancreatic lesion and the liver lesions concerning for underlying malignancy. 3. Hypotension seems to be chronic now, on oral midodrine. 4. Hyperlipidemia. PLAN: At this time, seems like her hematuria resolved. Urology came and evaluated the patient, but I do not see a note yet. According to the nurse, the urologist spoke with her and said just to get a bladder scan. No intervention at this time. In relation to the pancreatic liver lesions, Dr. Quinones, oncologist came and evaluated the patient, ordered an MRI with and without contrast to further evaluate these lesions. She will likely need a CT-guided biopsy at some point to see the actual diagnosis. We are going to repeat labs in the morning. Continue same plan of care. Once again, I spoke with the patient at bedside with the nurse present, in which she did not want to tell the family about her overall diagnosis, so I asked the family to please step out and I discussed overall plan of care with the patient alone in the room. She understood me. She verbalized understanding and she had no other questions. MD ASHLEY Doe/CLAUDIA /[id number]
--- NOTE | 2018-07-24 19:14 | NUR ---
PATIENT IS IN STABLE CONDITION WITH NO S/S OF RESPIRATORY DISTRESS. IV FLUIDS INFUSING. PATIENT IS CURRENTLY NPO FOR CT OF CHEST. THE CALL LIGHT IS WITHIN REACH OF PATIENT- PATIENT INSTRUCTED TO CALL FOR ASSISTANCE NEEDED. BEDSIDE SHIFT REPORT GIVEN TO ONCOMING NURSE.
[2018-07-24] MEDS: SIMVASTATIN 20 MG TAB PO SCH (20:24)
--- NOTE | 2018-07-24 23:08 | Diagnostic Imaging Report ---
EXAM: CT Chest WITH contrast 07/24/2018 5:06 PM INDICATION: Shortness of breath. Liver lesions. Pancreatic lesion. COMPARISON: None. Correlation CT abdomen dated 07/22/2018. TECHNIQUE: Chest was scanned utilizing a multidetector helical scanner from the lung apex through the level of the adrenal glands without administration of IV contrast. Coronal and sagittal reformations were obtained. Routine protocol was performed. IV CONTRAST: 100 cc Isovue-300 RADIATION DOSE: Total DLP: 446.03 mGy*cm Estimated effective dose: (DLP x 0.014 x size factor) mSv COMPLICATIONS: None FINDINGS: LINES/ TUBES: None. LUNGS AND AIRWAYS: Mild bilateral pulmonary venous congestion. Patchy groundglass density throughout the lungs bilaterally may represent atelectasis. Airways are normal. PLEURA: Bilateral trace pleural effusion. HEART AND MEDIASTINUM: 4 mm low-attenuation nodule in the left thyroid lobe on image 4. 5. Minimal calcified nodule in the left thyroid lobe laterally image 9. 1.5 x 1.0 cm right hilar lymph node on image 40. 1.4 x 0.9 cm lymph node in the left hilar region on image 40 series 2. The heart is mildly enlarged.tThere is no pericardial effusion. There are mild atherosclerotic calcifications in the aorta and coronary arteries. UPPER ABDOMEN: Limited non-contrast views of the upper abdomen show a 1.1 cm high attenuation lesion in segment 7 on image 76. 1.1 cm high attenuation lesion in lateral segment of the left hepatic lobe on image 75. 1.2 cm high attenuation lesion in the hepatic dome. 1.6 cm high attenuation lesion in the posterior pancreatic tail on image 91 series 2. The adrenal glands are normal. 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 SOFT TISSUES: Unremarkable. IMPRESSION: 1. Diffuse patchy groundglass densities throughout the lungs may represent atelectasis versus mild pulmonary edema. No consolidation. 2. High attenuation pancreatic and hepatic lesions as described on recent CT abdomen. These are again concerning for neuroendocrine tumor. Signed by: Dr. Lisa Galvan M.D. on 07/24/2018 11:04 PM
[2018-07-25] VITALS (8 sets, daily range): BP systolic 118–150; BP diastolic 56–68
[2018-07-25 06:27] LABS: BASOPHILS % 0.3 % (0.0-1.0); EOSINOPHILS # (AUTO) 0.2 (0.0-0.4); HEMATOCRIT 31.8 % (34.2-44.1); HEMOGLOBIN 10.6 g/dL (12.0-16.0); LYMPHOCYTES # (AUTO) 1.3 (1.0-3.2); LYMPHOCYTES % 16.9 % (18.0-39.1); MEAN CORPUSCULAR HEMOGLOBIN 30.5 pg (28-32); MEAN CORPUSCULAR HGB CONC 33.3 g/dL (31-35); MEAN CORPUSCULAR VOLUME 91.4 fL (81-99); MONOCYTES # (AUTO) 0.5 (0.2-0.8); MONOCYTES % 6.7 % (4.4-11.3); NEUTROPHILS # (AUTO) 5.5 (2.1-6.9); NEUTROPHILS % 73.7 % (38.7-80.0); PLATELET COUNT 202 x10e3/uL (140-360); RED BLOOD COUNT 3.48 x10e6/uL (3.6-5.1); RED CELL DISTRIBUTION WIDTH 13.9 % (11.7-14.4)
[2018-07-25 06:38] LABS: INR 1.24; PROTHROMBIN TIME 16.2 seconds (11.9-14.5)
[2018-07-25 06:39] LABS: PARTIAL THROMBOPLASTIN TIME 32.1 seconds (23.8-35.5)
[2018-07-25 06:51] LABS: ANION GAP 10.7 mmol/L (8-16); BLOOD UREA NITROGEN 7 mg/dL (7-26); BUN/CREATININE RATIO 8 (6-25); CALCIUM 8.5 mg/dL (8.4-10.2); CARBON DIOXIDE 26 mmol/L (22-29); CHLORIDE 108 mmol/L (98-107); CREATININE, SERUM 0.89 mg/dL (0.57-1.11); EST GLOMERULAR FILTRATION RATE > 60 ML/MIN (60-); GLUCOSE 92 mg/dL (74-118); POTASSIUM 3.7 mmol/L (3.5-5.1); SODIUM 141 mmol/L (136-145)
--- NOTE | 2018-07-25 07:30 | NUR ---
RECD PT IN BED SLEEPING NO DISTRESS NTOED
[2018-07-25] MEDS: MIDODRINE 2.5 MG TAB PO SCH ×2 (08:06→12:00)
[2018-07-25] MEDS: PANTOPRAZOLE SOD 40 MG TABEC PO SCH (08:06)
[2018-07-25] MEDS ORDERED: GADOBENATE DIMEGLUMINE 1 ML IV ONE (11:47)
[2018-07-25] MEDS ORDERED: SODIUM CHLORIDE 0.9% 100 ML 100 ML ONE (13:01)
--- NOTE | 2018-07-25 15:04 | Diagnostic Imaging Report ---
EXAM: MR Abdomen WITHOUT and WITH Contrast Magnetic Resonance Cholangiopancreatography (M.R.C.P.) INDICATION: ^pancreatic lesion, liver lesion, hematuria COMPARISON: CT chest 07/24/2018. CT abdomen and pelvis 07/22/2018. TECHNIQUE: Multiplanar and multisequence imaging was performed of the abdomen without and with contrast. T1-weighted, T2-weighted images, T1-weighted in and [id number], and Diffusion weighted images. Dynamic, post gadolinium T1-weighted spoiled gradient echo scans. M.R.C.P. Technique: Multiplanar, multisequence MRCP was performed, with sequences including coronal turbo spin-echo T1-weighted scans, [facility] MRCP scans, coronal spin, [facility] MPR 2, [facility], [facility] MRCP [place]. Thin and thick slab MRCP sequences with 3-D rotational images were performed by the technologist at the scanner workstation and supervising reviewed by the radiologist. IV Contrast: 14 mL of MultiHance gadolinium Oral Contrast: None Medications: None COMPLICATIONS: None FINDINGS: LOWER THORAX: Unremarkable. HEPATOBILIARY: No focal hepatic lesions. No biliary ductal dilation. Common bile duct measures 0.4 cm. GALLBLADDER: No radio-opaque stones or sludge. Mild gallbladder wall thickening. SPLEEN: No splenomegaly. PANCREAS: 1.2 x 1.2 cm lesion in the tail of the pancreas (on CT it measured 1.4 x 1.6 cm). (Series 6, image 22). The lesion demonstrates arterial enhancement with persistent and gradual enhancement. This lesion enhances greater than compared to the spleen. ADRENALS: No adrenal nodules KIDNEYS/URETERS: Kidneys enhance symmetrically. No hydronephrosis. There are scattered tiny T2 hyperintensities without definite enhancement, likely cysts No stones. GI TRACT: No abnormal distention, wall thickening, or evidence of bowel obstruction. Appendix is normal. LYMPH NODES: No lymphadenopathy. VESSELS: Unremarkable. PERITONEUM / RETROPERITONEUM: No free air or fluid. BONES: Unremarkable. SOFT TISSUES: Unremarkable. IMPRESSION: 1. Exam is limited by breathing motion artifact. 2. Liver lesions are obscured by breathing motion artifact. 3. 1.2 cm lesion in the tail of the pancreas (on CT measuring 1.4 x 1.6 cm). Enhancement pattern is highly concerning for neuroendocrine tumor. 4. Mild gallbladder wall thickening. Common bile duct is normal based on MRCP sequences. 5. Bilateral renal cysts. Signed by: Dr. Thee Jim M.D. on 07/25/2018 3:01 PM
[2018-07-25] MEDS ORDERED: CEFTRIAXONE SOD 1 GM/NS 50 ML 50 ML IV SCH (15:45)
--- NOTE | 2018-07-25 17:32 | Progress Note ---
DATE: 07/25/2018 Medicine Progress Note SUBJECTIVE: The patient is doing well today with no complaints. No overnight events. I discussed with her based on what the rubber thread spooler spoke with me about, but the imaging today shows small lesion and it is very difficult to biopsy. Recommend outpatient followup with repeat imaging over several weeks in his office. The patient also reports having still some hematuria in which I am trying to the urology to come speak to the family. The patient does not know why she is on warfarin at home. Apparently, she states that she has been taking it for CVA history, but she has been on warfarin for more than six years now. At this time, I am not sure exactly why she is on warfarin and the family is in the process of trying to figure that out with their primary care physician. OBJECTIVE: VITAL SIGNS: Temperature 97.4, pulse 65, respiratory rate 18, blood pressure 118/56, and pulse ox 98% on room air. GENERAL: Not in acute distress. Oriented x3. Cooperative on examination. HEENT: Head is normocephalic and atraumatic. Eyes; pupils are equal, round, and reactive to light bilaterally. Extraocular movements are intact bilaterally. NECK: Supple. Good range of motion throughout. No evidence of any erythema or exudate in the posterior pharynx. She has poor dentition. PULMONARY: Clear to auscultation bilaterally. No wheezing, no rales, no rhonchi, no crackles appreciated. CARDIOVASCULAR: Positive S1, S2. No murmurs, rubs, or gallops. ABDOMEN: Soft, nondistended, and nontender to palpation. Bowel sounds present. MUSCULOSKELETAL: Strength is 5/5 throughout. No evidence of any muscle deficits on examination. No weakness appreciated. NEUROLOGICAL: Cranial nerves II through XII grossly intact. No evidence of any neurological deficits on exam. SKIN: Intact. Warm to touch. Good capillary refill. PSYCHIATRIC: Normal affect and mood. EXTREMITIES: No edema. Good range of motion throughout. LAB FINDINGS: Show white count 7.4, hemoglobin 10.6, hematocrit 31.8, platelets 202. Chemistry; sodium 131, potassium 3.7, chloride 108, bicarb 26, anion gap of 10, BUN 7, creatinine 0.89. CA-19-9 antigen pending. CEA antigen pending. Albumin 2.7. Microbiology, urine culture positive for gram-negative bacilli. IMAGING STUDIES: MRI of the abdomen shows the liver lesions obscured by breathing motion artifact. There is 1.2 cm lesion in the tail of the pancreas. Enhancement pattern is highly concerning for neuroendocrine tumor. Mild gallbladder wall thickening. Common bile duct is based on MRCP sequences. Bilateral renal cyst. IMPRESSION: 1. Hematuria, on anticoagulation for unknown etiology. 2. 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 3. Chronic hypotension. 4. Hyperlipidemia. 5. Urinary tract infection. PLAN: I had a long discussion with the family at bedside. They are not sure why the patient is on warfarin. The patient reports that she has been on warfarin for more than six years now and she was diagnosed by a physician in the hospital and her primary care physician continue with the warfarin. At this time, I have no sure indication why she is on warfarin. She does still complain of some hematuria. I am awaiting Urology's final recommendations about the hematuria. The family will call the PCP's office and hopefully we could figure out the reason why she is on blood thinners. We are going to request for the records to be sent to our office once we find out exactly why she is on warfarin. MRI of the abdomen was reviewed. I have discussed this with Hematology as well. They report that the lesions are very small and very difficult to stick a needle and biopsy. It was felt by him this is less likely to be any kind of malignancy, but recommends outpatient followup in his office with serial repeat imaging studies to see if there is any change in size. I reiterated this to the family and they verbalized understanding as well. At this time, we are going to wait on Urology to continue with the next plan of care. With regard to warfarin, I am not sure why she is on this medication and we are in the process of investigating that. In the way, she does need to be on it, then we will have to keep it to buttress therapeutic level of INR before being discharged home. Discussed overall plan of care with family at bedside and nursing staff. MD ASHLEY Doe/CLAUDIA /[id number]
--- NOTE | 2018-07-25 17:50 | NUR ---
PT UP IN BED DENIES PAIN,NO DISTRESSNOTED,VOIDING WITHOUT DIFFICULTY,RAFAL URINE
--- NOTE | 2018-07-25 19:00 | NUR ---
Report and walking rounds completed. Patient in bed with call light within reach. No issues or concerns. Will continue to monitor.
[2018-07-25] MEDS: SIMVASTATIN 20 MG TAB PO SCH (20:42)
[2018-07-26] VITALS: BP 133/72
[2018-07-26 04:00] VITALS: BP 142/80
--- NOTE | 2018-07-26 06:00 | NUR ---
Resting in bed, call light within reach, no issues or concerns. Will continue to monitor.
[2018-07-26 06:31] LABS: BASOPHILS % 0.6 % (0.0-1.0); EOSINOPHILS # (AUTO) 0.3 (0.0-0.4); EOSINOPHILS % 4.8 % (0.0-6.0); HEMATOCRIT 31.9 % (34.2-44.1); HEMOGLOBIN 10.3 g/dL (12.0-16.0); LYMPHOCYTES # (AUTO) 1.5 (1.0-3.2); LYMPHOCYTES % 22.8 % (18.0-39.1); MEAN CORPUSCULAR HEMOGLOBIN 30.1 pg (28-32); MEAN CORPUSCULAR HGB CONC 32.3 g/dL (31-35); MEAN CORPUSCULAR VOLUME 93.3 fL (81-99); MONOCYTES # (AUTO) 0.7 (0.2-0.8); MONOCYTES % 10.3 % (4.4-11.3); NEUTROPHILS # (AUTO) 3.9 (2.1-6.9); NEUTROPHILS % 61.3 % (38.7-80.0); PLATELET COUNT 207 x10e3/uL (140-360); RED BLOOD COUNT 3.42 x10e6/uL (3.6-5.1); RED CELL DISTRIBUTION WIDTH 13.6 % (11.7-14.4)
[2018-07-26 06:47] LABS: ANION GAP 11.1 mmol/L (8-16); CALCIUM 8.6 mg/dL (8.4-10.2); CREATININE, SERUM 0.98 mg/dL (0.57-1.11); POTASSIUM 4.1 mmol/L (3.5-5.1)
--- NOTE | 2018-07-26 07:23 | NUR ---
spoke with dr quevedo follow up as outpatient for possible cysto
[2018-07-26 08:06] VITALS: BP 136/74
[2018-07-26 08:54] VITALS: BP 136/74
[2018-07-26] MEDS: PANTOPRAZOLE SOD 40 MG TABEC PO SCH (09:07)
[2018-07-26 12:09] VITALS: BP 114/56
[2018-07-26 16:24] VITALS: BP 136/66
--- NOTE | 2018-07-27 12:27 | Consultation ---
DATE OF CONSULTATION: 07/25/2018 HISTORY OF PRESENT ILLNESS: Juliana Huntley is an 82-year-old female referred to me for evaluation of a lesion in the tail of the pancreas. The patient had presented with coagulopathy and blood in the urine. SOCIAL HISTORY: None. FAMILY HISTORY: None. ALLERGIES: REPORTED PENICILLIN. MEDICATIONS: At this time, 1. Sodium chloride. 2. Ondansetron. 3. Tylenol. 4. Midodrine. 5. Protonix. 6. Trazodone. 7. Simvastatin. 8. Simethicone. 9. Morphine. REVIEW OF SYSTEMS: HEENT: Normal. CARDIAC: History of hyperlipidemia. RESPIRATORY: Normal. GI: A lesion in the tail of the pancreas. : Normal. MUSCULOSKELETAL: Normal. SKIN AND BREASTS: Normal. NEUROENDOCRINE: Essentially normal. PHYSICAL EXAMINATION: GENERAL: Remarkable female. NECK: No palpable adenopathy. HEART: Within normal limits. LUNGS: Clear. BREASTS: Normal. ABDOMEN: Obese. RECTAL AND VAGINAL: Deferred. CENTRAL NERVOUS SYSTEM: Essentially normal. EXTREMITIES: Essentially normal. LABORATORY DATA: Lab shows a hemoglobin of 10.6, hematocrit 31.8, white count of 7410, and platelets of 202,000. INR 1.2. Bilirubin 1, SGOT 11, SGPT 9, alkaline phosphatase 47. Sodium 141, potassium 3.1, chloride 108, CO2 of 26, BUN 7, creatinine 0.89. CT scan of the abdomen shows a 1.6 cm lesion in the tail of the pancreas, subcentimeter lesions in the liver, three of them. IMPRESSION: 1. Lesion of the pancreas, 1.6 cm in the tail of the pancreas, possible neuroendocrine tumor. 2. Subcentimeter lesions in the liver, possible metastases. 3. Anemia of chronic disease (10.4). 4. Hypoproteinemia (6.0). 5. Hypoalbuminemia (2.7). 6. Urinary tract infection. 7. Coagulopathy with INR of 1.8. 8. Hematuria. 9. Hyperlipidemia. 10. History of stroke. PLAN, COMMENTS, AND SUGGESTIONS: Suggest MRI of the abdomen. I doubt the patient has cancer of the pancreas. Neuroendocrine tumor is very possible. CA 19-9 is awaited. CA 19-9 was reported essentially normal. Because of the size of the tumor of 1.6 cm, I will take the MRI and the CT scans to the interventional radiologist to see if at all this could be biopsied. Since the CA 19-9 is reported normal, I would prefer to repeat the CT scan or the MRI in about three months to see if there is any progression. Certainly, this is not a garden-variety cancer of the pancreas with as the CA 19-9 is normal. Neuroendocrine tumor is very possible. However, this will give us some time as she is 82 years old and if metastasis is incurable if confirmed, this will be treated with DKI. Thank you very much for allowing me to participate in management of this patient. I have suggested the patient to make appointment with me in about three months. MD ALLY Alexander/MODL /[id number] cc: Maycol Ruby MD
--- NOTE | 2018-07-27 16:47 | Discharge Summary ---
FINAL DISCHARGE DIAGNOSES: 1. Hematuria, resolved after anticoagulation was discontinued. We will need outpatient followup with Urology. 2. Pancreatic lesions and liver lesions, found to be very small in nature, needs outpatient followup with Dr. Neely, Hematology-Oncology. 3. Chronic hypotension. 4. Hyperlipidemia. 5. Urinary tract infection. 6. On anticoagulation, unknown etiology, but was told to discontinue. On discharge, consult with Hematology/Oncology and Neurology. PHYSICAL EXAMINATION: VITAL SIGNS: Temperature is 96, pulse 78, respiratory rate is 18, blood pressure 136/66, pulse ox 98% on room air. LAB FINDINGS: Show white count 6.4, hemoglobin 10.2, hematocrit 32, platelets of 207. Coagulation; PT 16, INR 1.2, PTT 32. Chemistry; sodium 141, potassium 4.1, chloride 108, bicarb 26, anion gap of 9, BUN 14, creatinine 0.98, glucose 97, calcium is 8.6. CA-19-9 is 2. CEA was 1.5, albumin 2.7, total protein 6. LFTs were within normal range. Urinalysis with UTI. Microbiology shows escherichia coli, sensitive to Omnicef, which the patient was discharged on. IMAGING STUDIES: CT abdomen and pelvis with IV contrast shows conclusion, pancreatic cell hypodense lesion with multiple hypodense liver lesions. There is a 7 mm indeterminate hypodense lesion in the right mid pole of the kidney, needs outpatient followup. This was discussed with the patient outpatient followup in his office. CT chest with IV contrast shows diffuse patchy ground glass density pulmonary edema. No consolidation. There is evidence of high attenuation described in recent CT abdomen. MRI of the abdomen 1.2 cm lesion in the tail of the pancreas. Enhancement pattern is highly concerning for a neuroendocrine tumor. but no evidence of cholecystitis. Bilateral renal cysts. HOSPITAL COURSE: This is an 82-year-old female, who came into the ED with complaints of abdominal pain, found to have urinary tract infection and was treated only with IV antibiotics. The patient was discharged on oral antibiotics. On random imaging studies, she was found to have liver lesions as well as pancreatic lesions requiring Hematology/Oncology consultation. Imaging studies were performed, found to have a 1.2 lesion in the tail of the pancreas, which seems to be very small in nature. She also has liver lesions as well. In further discussion with Hematology/Oncology, it was felt that the serologies so far CA-19-9 and CEA have been found to be normal and recommends outpatient followup in his office in one month with repeat imaging. At that time, he will determine if . Also for Hematology, he recommended holding off the warfarin. If the patient does not know why she is taking warfarin. She has been on warfarin for 6 years. There is no reported atrial fibrillation, atrial flutter, or any other history of DVT or any hematological disorder. Her Hematology was recommended to discontinue warfarin on discharge. It was okay to continue with low-dose baby aspirin. I also discussed with the patient to follow up with the PCP and patient and family does not know the reason why she is on it and we do not have records here in this hospital for the lesions which are being on today. On admission, she was also found to have hematuria, it is likely felt to be from underlying coagulation. Urology was consulted and recommended outpatient followup in his office. No further intervention was needed. Her hematuria resolved, while she was here in the hospital stay. On discharge, the patient was doing well back to normal baseline with no other complaints. The patient verbalized understanding and agreed with plan of care to follow up as an outpatient with the PCP in 1 week, Hematology/Oncology in about one month time, evaluate the liver lesions and the pancreatic lesions as well as Urology in 1 week for further evaluation of possible worsening or any even if she has any hematuria. The patient has been cleared by all consultants for discharge home Hematology/Oncology and Urology. The patient doing well with no issues. On the day of discharge, vital signs stable, labs being stable. The patient is seen and evaluated, examined thoroughly on the day of discharge with no other complaints. The patient verbalized understanding and agreed to plan of care and she will follow up accordingly with . MEDICATIONS: See med reconciliation form. DISPOSITION: Home. CONDITION: Stable. DIET: Heart healthy. In the event of any worsening symptoms, the patient was advised to come back to the ED for further evaluation. Discharge summary took greater than 35 minutes. MD ASHLEY Doe/MODValarie /[id number]
== END 2018-07-26 17:09 | disposition home or self-care (01) | DRG 813 ==
LOC: ER 10:40 → ERHOLD 18:20 → MED/SURG3 19:42 → OBSVTOIN 07-24 12:30
PROVIDERS: ADMIT Internal Medicine; ATTEND Internal Medicine
DX: D68.32 Hemorrhagic disorder due to extrinsic circulating anticoagulants (principal); N39.0 Urinary tract infection, site not specified; C25.9 Malignant neoplasm of pancreas, unspecified; C22.9 Malignant neoplasm of liver, not specified as primary or secondary; T45.515A Adverse effect of anticoagulants, initial encounter; R31.9 Hematuria, unspecified; K76.9 Liver disease, unspecified; K86.9 Disease of pancreas, unspecified; E03.9 Hypothyroidism, unspecified; E78.5 Hyperlipidemia, unspecified; E88.09 Other disorders of plasma-protein metabolism, not elsewhere classified; E77.8 Other disorders of glycoprotein metabolism; Z86.73 Personal history of transient ischemic attack (TIA), and cerebral infarction without residual deficits; K76.0 Fatty (change of) liver, not elsewhere classified
CPT/HCPCS: 36415; 71260; 74177; 74183; 80048; 80076; 81001; 82378; 85025; 85610; 85730; 86301; 87086; 87186; 96376; 99284; G0378; J0696; J2270; J2405; J7030; Q9967

== ENCOUNTER 2020-01-29 20:53 | Emergency (ER) | payer MEDICARE ==
[~2020-01-29] VITALS: Ht 160 cm; Wt 69.4 kg
[~2020-01-29 20:53] MED LIST: ALENDRONATE SOD70 MG PO; COUMADIN1 MG PO; COUMADIN2 MG PO; HYDROCHLOROTH12.5 MG PO; LISINOPRIL2.5 MG PO; LOVASTATIN40 MG PO; NORVASC5 MG PO; OMEPRAZOLE40 MG PO; POTASSIUM CHLO10 ME1 PO; SLOW-MAG64 MG PO
[2020-01-29] MEDS ORDERED: ONDANSETRON HCL INJ 2MG/ML 2ML 2 MG/ML VIAL IV STA (20:57)
[2020-01-29] MEDS ORDERED: KETOROLAC TROMETHAMINE 30 MG/ML VIAL IV ONE (21:00)
[2020-01-29 21:10] LABS: BASOPHILS % 0.6 % (0.0-1.0); EOSINOPHILS # (AUTO) 0.2 (0.0-0.4); EOSINOPHILS % 2.6 % (0.0-6.0); HEMATOCRIT 34.5 % (34.2-44.1); HEMOGLOBIN 11.1 g/dL (12.0-16.0); LYMPHOCYTES # (AUTO) 2.4 (1.0-3.2); LYMPHOCYTES % 34.6 % (18.0-39.1); MEAN CORPUSCULAR HEMOGLOBIN 28.4 pg (28-32); MEAN CORPUSCULAR HGB CONC 32.2 g/dL (31-35); MEAN CORPUSCULAR VOLUME 88.2 fL (81-99); MONOCYTES # (AUTO) 0.6 (0.2-0.8); MONOCYTES % 8.5 % (4.4-11.3); NEUTROPHILS # (AUTO) 3.6 (2.1-6.9); NEUTROPHILS % 53.6 % (38.7-80.0); PLATELET COUNT 272 x10e3/uL (140-360); RED BLOOD COUNT 3.91 x10e6/uL (3.6-5.1)
[2020-01-29 21:25] LABS: CLARITY,URINE CLEAR (CLEAR); COLOR,URINE YELLOW (YELLOW); KETONES,URINE NEGATIVE (NEGATIVE); LEUKOCYTE ESTERASE ,URINE TRACE (NEGATIVE); NITRITE,URINE NEGATIVE (NEGATIVE); PROTEIN,URINE DIPSTICK 1+ (NEGATIVE); URINE UROBILINOGEN 0.2 mg/dL (0.2 - 1)
[2020-01-29 21:28] LABS: ALANINE AMINOTRANSFERASE 15 IU/L (0-55); ALBUMIN 3.9 g/dL (3.5-5.0); ALKALINE PHOSPHATASE 66 IU/L (40-150); BLOOD UREA NITROGEN 17 mg/dL (7-26); BUN/CREATININE RATIO 18 (6-25); CARBON DIOXIDE 25 mmol/L (22-29); CHLORIDE 99 mmol/L (98-107); CREATINE KINASE 164 IU/L (29-168); CREATININE, SERUM 0.92 mg/dL (0.57-1.11); EST GLOMERULAR FILTRATION RATE 58 ML/MIN (60-); GLUCOSE 105 mg/dL (74-118); SODIUM 135 mmol/L (136-145)
[2020-01-29 21:36] LABS: BACTERIA,URINE FEW /HPF; EPITHELIAL CELLS,URINE FEW /LPF; RBC,URINE 0-5 /HPF (0-5)
[2020-01-29 23:41] VITALS: BP 170/79
== END 2020-01-29 23:30 | disposition home or self-care (01) ==
LOC: ER 20:57
DX: R10.31 Right lower quadrant pain (principal); N39.0 Urinary tract infection, site not specified; R30.0 Dysuria; R94.31 Abnormal electrocardiogram [ECG] [EKG]; R11.0 Nausea; I10 Essential (primary) hypertension; E78.5 Hyperlipidemia, unspecified; K21.9 Gastro-esophageal reflux disease without esophagitis; Z86.73 Personal history of transient ischemic attack (TIA), and cerebral infarction without residual deficits
CPT/HCPCS: 36415; 74176; 80053; 81001; 82550; 82553; 84484; 85025; 93005; 99284; J1885; J2405

== ENCOUNTER 2020-06-28 11:57 | Emergency (ER) | payer MEDICARE ==
[~2020-06-28] VITALS: Ht 160 cm; Wt 69.4 kg
[2020-06-28] MEDS ORDERED: ASPIRIN 81 MG CHEW TAB PO ONE (12:15)
[2020-06-28 12:26] LABS: BASOPHILS % 0.7 % (0.0-1.0); EOSINOPHILS % 0.7 % (0.0-6.0); HEMATOCRIT 30.9 % (34.2-44.1); HEMOGLOBIN 9.7 g/dL (12.0-16.0); LYMPHOCYTES # (AUTO) 1.1 (1.0-3.2); LYMPHOCYTES % 19.1 % (18.0-39.1); MEAN CORPUSCULAR HEMOGLOBIN 26.1 pg (28-32); MEAN CORPUSCULAR HGB CONC 31.4 g/dL (31-35); MEAN CORPUSCULAR VOLUME 83.1 fL (81-99); MONOCYTES # (AUTO) 0.4 (0.2-0.8); MONOCYTES % 6.3 % (4.4-11.3); NEUTROPHILS # (AUTO) 4.2 (2.1-6.9); NEUTROPHILS % 72.9 % (38.7-80.0); PLATELET COUNT 287 x10e3/uL (140-360); RED BLOOD COUNT 3.72 x10e6/uL (3.6-5.1); RED CELL DISTRIBUTION WIDTH 16.7 % (11.7-14.4)
[2020-06-28 12:53] LABS: CLARITY,URINE CLEAR (CLEAR); COLOR,URINE YELLOW (YELLOW); KETONES,URINE NEGATIVE (NEGATIVE); LEUKOCYTE ESTERASE ,URINE TRACE (NEGATIVE); NITRITE,URINE NEGATIVE (NEGATIVE); PROTEIN,URINE DIPSTICK 2+ (NEGATIVE); URINE UROBILINOGEN 0.2 mg/dL (0.2 - 1)
[2020-06-28 13:07] LABS: BACTERIA,URINE FEW /HPF; EPITHELIAL CELLS,URINE FEW /LPF; RENAL EPITHELIAL CELLS,URINE FEW; TRANSITIONAL EPI CELLS,URINE FEW
[2020-06-28 13:15] LABS: ALANINE AMINOTRANSFERASE 21 IU/L (0-55); ALBUMIN 3.4 g/dL (3.5-5.0); ALBUMIN/GLOBULIN RATIO 0.9 (0.8-2.0); ALKALINE PHOSPHATASE 90 IU/L (40-150); ANION GAP 13.9 mmol/L (8-16); BLOOD UREA NITROGEN 10 mg/dL (7-26); BUN/CREATININE RATIO 11 (6-25); CALCIUM 8.9 mg/dL (8.4-10.2); CARBON DIOXIDE 27 mmol/L (22-29); CHLORIDE 99 mmol/L (98-107); CREATINE KINASE 134 IU/L (29-168); CREATININE, SERUM 0.89 mg/dL (0.57-1.11); EST GLOMERULAR FILTRATION RATE 60 ML/MIN (60-); GLUCOSE 107 mg/dL (74-118); POTASSIUM 3.9 mmol/L (3.5-5.1); SODIUM 136 mmol/L (136-145)
[2020-06-28] MEDS ORDERED: IOPAMIDOL 370 MG/ML 200 ML INFUS..BTL INJ ONE (13:37)
[2020-06-28] MEDS ORDERED: SODIUM CHLORIDE 0.9% 50ML 50 ML ONE (13:37)
[2020-06-28] MEDS ORDERED: HYDROCODON-ACE1 EA11 PO (15:34)
[2020-06-28] MEDS ORDERED: ATIVAN1 MG PO (15:34)
== END 2020-06-28 16:54 | disposition home or self-care (01) ==
LOC: ER 12:07
DX: R10.9 Unspecified abdominal pain (principal); N39.0 Urinary tract infection, site not specified; K86.9 Disease of pancreas, unspecified
CPT/HCPCS: 36415; 74177; 80053; 81001; 82550; 82553; 83690; 84484; 85025; 99284; Q9967

== ENCOUNTER 2020-07-10 12:28 | Emergency (ER) | payer MEDICARE ==
[~2020-07-10] VITALS: Ht 160 cm; Wt 69.4 kg
[~2020-07-10 12:28] MED LIST changes: +ATIVAN1 MG PO; +HYDROCODON-ACE1 EA11 PO
[2020-07-10 13:30] LABS: BASOPHILS % 0.6 % (0.0-1.0); EOSINOPHILS # (AUTO) 0.1 (0.0-0.4); EOSINOPHILS % 1.6 % (0.0-6.0); HEMATOCRIT 29.1 % (34.2-44.1); HEMOGLOBIN 9.4 g/dL (12.0-16.0); LYMPHOCYTES % 15.7 % (18.0-39.1); MEAN CORPUSCULAR HEMOGLOBIN 26.1 pg (28-32); MEAN CORPUSCULAR HGB CONC 32.3 g/dL (31-35); MEAN CORPUSCULAR VOLUME 80.8 fL (81-99); MONOCYTES # (AUTO) 0.5 (0.2-0.8); MONOCYTES % 8.6 % (4.4-11.3); NEUTROPHILS # (AUTO) 4.6 (2.1-6.9); NEUTROPHILS % 73.3 % (38.7-80.0); PLATELET COUNT 317 x10e3/uL (140-360); RED CELL DISTRIBUTION WIDTH 16.2 % (11.7-14.4)
[2020-07-10 13:39] LABS: INR 1.56; PROTHROMBIN TIME 19.4 seconds (11.9-14.5)
[2020-07-10 13:46] LABS: ALBUMIN 3.3 g/dL (3.5-5.0); ALBUMIN/GLOBULIN RATIO 0.9 (0.8-2.0); ANION GAP 12.4 mmol/L (8-16); CALCIUM 8.5 mg/dL (8.4-10.2); CREATININE, SERUM 0.9 mg/dL (0.57-1.11); POTASSIUM 3.4 mmol/L (3.5-5.1)
== END 2020-07-10 14:39 | disposition home or self-care (01) ==
LOC: ER 12:58
DX: K62.5 Hemorrhage of anus and rectum (principal); I10 Essential (primary) hypertension; E78.5 Hyperlipidemia, unspecified; K21.9 Gastro-esophageal reflux disease without esophagitis; F32.9 Major depressive disorder, single episode, unspecified; Z86.73 Personal history of transient ischemic attack (TIA), and cerebral infarction without residual deficits
CPT/HCPCS: 36415; 80053; 85025; 85610; 99283

== ENCOUNTER 2020-07-20 18:31 | Emergency (ER) | payer MEDICARE ==
[~2020-07-20] VITALS: Ht 160 cm; Wt 69.4 kg
[2020-07-20] MEDS ORDERED: HYDROMORPHONE 1MG/1ML INJ IM STA (18:49)
[2020-07-20 20:26] LABS: CLARITY,URINE CLOUDY (CLEAR); COLOR,URINE YELLOW (YELLOW)
[2020-07-20 20:27] LABS: LEUKOCYTE ESTERASE ,URINE TRACE (NEGATIVE)
[2020-07-20 20:28] LABS: KETONES,URINE NEGATIVE (NEGATIVE); NITRITE,URINE NEGATIVE (NEGATIVE); PROTEIN,URINE DIPSTICK 1+ (NEGATIVE); URINE UROBILINOGEN 0.2 mg/dL (0.2 - 1)
[2020-07-20 20:29] LABS: BACTERIA,URINE MODERATE /HPF; EPITHELIAL CELLS,URINE MODERATE /LPF
== END 2020-07-20 20:30 | disposition home or self-care (01) ==
LOC: ER 18:38
DX: R10.13 Epigastric pain (principal); R30.0 Dysuria; N39.0 Urinary tract infection, site not specified; G89.3 Neoplasm related pain (acute) (chronic); C25.9 Malignant neoplasm of pancreas, unspecified
CPT/HCPCS: 81001; 99282; J1170

== ENCOUNTER → 2020-07-29 | Outpatient (CLI) | payer MEDICARE, OTHER ==
[~2020-07-29] MED LIST changes: +CEFDINIR300 MG PO; +CREON DR 12,001 EACH PO; +FEROSUL325 MG PO; +WARFARIN SODIUM2 MG PO
[2020-07-29 12:04] LABS: BASOPHILS # (AUTO) 0.1 (0.0-0.1); BASOPHILS % 0.9 % (0.0-1.0); EOSINOPHILS # (AUTO) 0.1 (0.0-0.4); HEMATOCRIT 28.4 % (34.2-44.1); LYMPHOCYTES # (AUTO) 1.2 (1.0-3.2); LYMPHOCYTES % 16.8 % (18.0-39.1); MEAN CORPUSCULAR HEMOGLOBIN 25.4 pg (28-32); MEAN CORPUSCULAR HGB CONC 31.7 g/dL (31-35); MONOCYTES # (AUTO) 0.7 (0.2-0.8); NEUTROPHILS % 71.2 % (38.7-80.0); PLATELET COUNT 305 x10e3/uL (140-360); RED BLOOD COUNT 3.55 x10e6/uL (3.6-5.1); RED CELL DISTRIBUTION WIDTH 15.9 % (11.7-14.4)
== END | disposition home or self-care (01) ==
LOC: DX 14:15 → EDSTATUS 07-30 10:30
PROVIDERS: ATTEND Internal Medicine Gastroenterology
DX: Z01.810 Encounter for preprocedural cardiovascular examination (principal); Z01.812 Encounter for preprocedural laboratory examination; Z12.11 Encounter for screening for malignant neoplasm of colon; K92.1 Melena; R10.13 Epigastric pain; I10 Essential (primary) hypertension; E78.5 Hyperlipidemia, unspecified; Z79.01 Long term (current) use of anticoagulants; Z86.73 Personal history of transient ischemic attack (TIA), and cerebral infarction without residual deficits
CPT/HCPCS: 36415; 85025; 93005

== ENCOUNTER 2020-08-05 12:58 | Emergency (ER) | payer MEDICARE ==
[~2020-08-05] VITALS: Ht 160 cm; Wt 69.4 kg
== END 2020-08-05 15:40 | disposition home or self-care (01) ==
LOC: ER 13:14
DX: G89.3 Neoplasm related pain (acute) (chronic) (principal); C25.9 Malignant neoplasm of pancreas, unspecified; C22.8 Malignant neoplasm of liver, primary, unspecified as to type; I10 Essential (primary) hypertension; E78.5 Hyperlipidemia, unspecified; K21.9 Gastro-esophageal reflux disease without esophagitis; F32.9 Major depressive disorder, single episode, unspecified; Z86.73 Personal history of transient ischemic attack (TIA), and cerebral infarction without residual deficits
CPT/HCPCS: 99283

== ENCOUNTER → 2020-08-13 | Day surgery (SDC) | payer MEDICARE ==
[~2020-08-13] MED LIST changes: +LIDOCAINE HCL 2% LOCAL INJ 5 ML SDV VIAL INJ ONE; +PROPOFOL IV EMULSION 10 MG/ML 20 ML VIAL ONE
[2020-08-13 15:20] VITALS: BP 152/92
== END | disposition home or self-care (01) ==
LOC: OR 09:41
PROVIDERS: ATTEND Internal Medicine Gastroenterology
DX: K29.50 Unspecified chronic gastritis without bleeding (principal); D12.4 Benign neoplasm of descending colon; K31.7 Polyp of stomach and duodenum; K21.9 Gastro-esophageal reflux disease without esophagitis; K44.9 Diaphragmatic hernia without obstruction or gangrene; K57.30 Diverticulosis of large intestine without perforation or abscess without bleeding; K64.4 Residual hemorrhoidal skin tags; K64.8 Other hemorrhoids; D3A.8 Other benign neuroendocrine tumors; E78.5 Hyperlipidemia, unspecified; I10 Essential (primary) hypertension; F41.9 Anxiety disorder, unspecified; Z88.0 Allergy status to penicillin; Z79.01 Long term (current) use of anticoagulants; Z86.73 Personal history of transient ischemic attack (TIA), and cerebral infarction without residual deficits
CPT/HCPCS: 43239; 45381; 45385; J2001; J2704; 45378

== ENCOUNTER 2024-07-24 18:24 | Emergency (ER) | payer MEDICARE, OTHER ==
[~2024-07-24] VITALS: Ht 160 cm; Wt 69.4 kg
[~2024-07-24 18:24] MED LIST changes: -LIDOCAINE HCL 2% LOCAL INJ 5 ML SDV VIAL INJ ONE; -PROPOFOL IV EMULSION 10 MG/ML 20 ML VIAL ONE
[2024-07-24 19:06] LABS: BASOPHILS % 0.5 % (0.0-1.0); EOSINOPHILS # (AUTO) 0.1 (0.0-0.4); EOSINOPHILS % 1.6 % (0.0-6.0); HEMATOCRIT 29.4 % (34.2-44.1); HEMOGLOBIN 10.3 g/dL (12.0-16.0); LYMPHOCYTES # (AUTO) 1.6 (1.0-3.2); LYMPHOCYTES % 29.7 % (18.0-39.1); MEAN CORPUSCULAR HEMOGLOBIN 32.8 pg (28-32); MEAN CORPUSCULAR VOLUME 93.6 fL (81-99); MONOCYTES # (AUTO) 0.5 (0.2-0.8); MONOCYTES % 9.7 % (4.4-11.3); NEUTROPHILS # (AUTO) 3.2 (2.1-6.9); NEUTROPHILS % 58.3 % (38.7-80.0); PLATELET COUNT 213 x10e3/uL (140-360); RED BLOOD COUNT 3.14 x10e6/uL (3.6-5.1); RED CELL DISTRIBUTION WIDTH 12.8 % (11.7-14.4); WHITE BLOOD COUNT 5.46 x10e3/uL (4.8-10.8)
[2024-07-24 19:18] LABS: INR 1.35; PROTHROMBIN TIME 17.8 seconds (11.9-14.5)
[2024-07-24 19:19] LABS: PARTIAL THROMBOPLASTIN TIME 33.2 seconds (23.8-35.5)
[2024-07-24 19:25] LABS: ALBUMIN 3.9 g/dL (3.5-5.0); ALBUMIN/GLOBULIN RATIO 1.2 (0.8-2.0); ANION GAP 13.9 mmol/L (8-16); BILIRUBIN,TOTAL 0.8 mg/dL (0.2-1.2); CALCIUM 8.9 mg/dL (8.4-10.2); CREATININE, SERUM 1.21 mg/dL (0.57-1.11); POTASSIUM 4.9 mmol/L (3.5-5.1); TOTAL PROTEIN 7.2 g/dL (6.5-8.1)
[2024-07-24 19:31] LABS: TROPONIN I 0.016 ng/mL (0-0.300)
[2024-07-24] MEDS ORDERED: IOPAMIDOL 370 MG/ML 100 ML INFUS..BTL INJ ONE (20:39)
[2024-07-24] MEDS ORDERED: SODIUM CHLORIDE 0.9% 100 ML ONE (20:39)
[2024-07-24 21:58] VITALS: PULSE 71; RESP 16; TEMP 98.3; O2SAT 98
== END 2024-07-24 22:05 | disposition other institution (70) ==
LOC: ER 19:14
DX: R53.1 Weakness (principal); I72.5 Aneurysm of other precerebral arteries; I65.1 Occlusion and stenosis of basilar artery; E87.1 Hypo-osmolality and hyponatremia; I10 Essential (primary) hypertension; I50.9 Heart failure, unspecified; E78.5 Hyperlipidemia, unspecified; M19.09 Primary osteoarthritis, other specified site; K21.9 Gastro-esophageal reflux disease without esophagitis; R94.31 Abnormal electrocardiogram [ECG] [EKG]; Z86.73 Personal history of transient ischemic attack (TIA), and cerebral infarction without residual deficits; Z85.07 Personal history of malignant neoplasm of pancreas
CPT/HCPCS: 36415; 70496; 70498; 80053; 82550; 84484; 85025; 85610; 85730; 93005; 99284; J7050; Q9967